=== PATIENT | male | born 1990 | race Two or more races ===

== ENCOUNTER 2025-01-24 22:11 | Emergency (ER) | payer MEDICAID, OTHER ==
[~2025-01-24] VITALS: Ht 180.3 cm; Wt 76.3 kg
[2025-01-24 22:27] VITALS: BP 115/76; PULSE 81; RESP 12
[2025-01-24 23:00] VITALS: O2SAT 98
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
[2025-01-24 23:19] LABS: Basophils # (auto) 0.1 10 ^3/uL (0-0.2); Basophils % (auto) 1.8 % (0.0-2.0); Eosinophils # (auto) 0.1 10 ^3/uL (0-0.8); Eosinophils % (auto) 2.4 % (0.0-7.0); Hematocrit 39.1 % (41.0-53.0); Hemoglobin 13.1 g/dL (13.5-17.5); Lymphocytes % (auto) 34.8 % (10.0-50.0); Mean Corpuscular Hemoglobin 30.7 pg (28.0-32.0); Mean Corpuscular Hgb Conc. 33.4 g/dL (32.0-36.0); Mean Corpuscular Volume 91.9 fL (80.0-100.0); Monocytes # (auto) 0.4 10 ^3/uL (0-1.3); Monocytes % (auto) 6.1 % (0.0-12.0); Neutrophils # (auto) 3.2 10 ^3/uL (1.6-8.6); Neutrophils % (auto) 54.9 % (37.0-80.0); Nucleated Red Blood Cells % 0.2 %; Platelet Count (auto) 288 10^3/uL (140-450); Red Blood Cells 4.25 10^6/uL (4.5-5.90); White Blood Cell 5.9 10^3/uL (4.4-10.8)
[2025-01-24 23:30] LABS: Potassium 4.6 mmol/L (3.5-5.1); Sodium 143 mmol/L (136-145)
[2025-01-24 23:31] LABS: Anion Gap 5 (5-15); Calcium 9.9 mg/dL (8.7-10.4); Carbon Dioxide 28 mmol/L (20-31)
--- NOTE | 2025-01-24 23:34 | DVH ---
Exam: CT CHST AB PEL WO CON-NO IV/ORAL History: LEFT RIB PAIN Comparison Study: None Contrast: None TECHNIQUE: Multidetector CT of chest abdomen pelvis without IV contrast. Radiation Dose Information: CT Dose: CTDI volume is mGy. Dose-length product is mGy*cm FINDINGS: Lungs are well expanded without infiltrates or effusions. There is a small nodule seen in the postero lateral right lower lobe on axial image 57 measuring 4.4 mm. Left ribs are intact. Right ribs are intact. Sternum is intact thoracic spine is intact. Visualized s capula are intact. Patient has a large amount of material in the stomach vertebral bodies are unremar kable. IMPRESSION: 1. Large amount of materials in the stomach. Chest wall and lungs are unremarkable HS:Y
[2025-01-24 23:36] LABS: BUN/Creatinine Ratio 17.7 (10.0-20.0); Blood Urea Nitrogen 17 mg/dL (9-23)
[2025-01-24 23:37] LABS: Chloride 110 mmol/L (98-107); Glucose 119 mg/dL (74-106)
[2025-01-24] MEDS ORDERED: ACET500T58 PO (23:43)
== END 2025-01-24 23:46 | disposition home or self-care (01) ==
LOC: ER 22:11
DX: S20.212A Contusion of left front wall of thorax, initial encounter (principal); K29.70 Gastritis, unspecified, without bleeding; F12.90 Cannabis use, unspecified, uncomplicated; X58.XXXA Exposure to other specified factors, initial encounter; Y93.89 Activity, other specified; Y92.89 Other specified places as the place of occurrence of the external cause; Y99.8 Other external cause status
CPT/HCPCS: 36415; 71250; 74176; 80048; 84484; 85025